=== PATIENT | female | born 1965 | race Caucasian/White ===

== ENCOUNTER 2017-01-14 16:54 | Emergency (ER) | payer OTHER ==
--- NOTE | ~2017-01-14 | CR127 ---
[facility]. [facility] A Service of [facility] & [facility] RADIOLOGY TEXT RESULTS PATIENT: JULIA THACKER LOCATION: SED : 65 UNIT #: [id number] AGE: [address]: LANG HAIRSTON SEX: F ORDER DR: [id number] [place] [address] [id number] E MR#: [id number] Acc #: [id number] NAME: JULIA THACKER : 1965 SEX: F STUDY DATE/TIME: 01/14/2017 16:33 UNIT: SED ROOM: STUDY DESCRIPTION: CR Foot Complete Min 3 View Rt Attending Physician: Lang Hairston Ordering Physician: Pasha Flaherty M.D. Primary Care Physician: Mesfin Pavon M.D. MEDICAL IMAGING REPORT This report is preliminary unless electronic signature is present. EXAM Right foot, 01/14 INDICATIONS Foot pain after fall today. FINDINGS 3 views of the right foot are compared with 09/04/2009. No fracture or malalignment is seen. The soft tissues are unremarkable. IMPRESSION Negative right foot. Dictated by... Francisco Javier Vidal Jr., M.D. THIS IS AN ELECTRONICALLY VERIFIED REPORT Francisco Javier Vidal Jr., M.D. at 01/15/2017 7:54 AM RLK/guzman TD: 01/14/2017 21:24 JOB #: [id number] MEDICAL IMAGING REPORT Page 1 of 1
--- NOTE | ~2017-01-14 | CR21 ---
[facility] A Service of [facility] & [facility] RADIOLOGY TEXT RESULTS PATIENT: JULIA THACKER LOCATION: SED : 65 UNIT #: [id number] AGE: [address]: LANG HAIRSTON SEX: F ORDER DR: [id number] [place] [address] [id number] E MR#: [id number] Acc #: [id number] NAME: JULIA THACKER : 1965 SEX: F STUDY DATE/TIME: 01/14/2017 16:33 UNIT: SED ROOM: STUDY DESCRIPTION: CR Ankle Min 3 Views Rt Attending Physician: Lang Hairston Ordering Physician: Pasha Flaherty M.D. Primary Care Physician: Mesfin Pavon M.D. MEDICAL IMAGING REPORT This report is preliminary unless electronic signature is present. EXAM Right ankle, 01/14 INDICATIONS Ankle pain after fall today. FINDINGS 3 views of the right ankle are compared with 09/04/2009. There is lateral soft tissue swelling. There is an oblique, essentially nondisplaced fracture of the distal fibula. There is also evidence of old trauma about both malleoli. The mortise is intact. IMPRESSION Oblique fracture of the distal fibula with associated lateral soft tissue swelling. Evidence of old trauma about both malleoli. Dictated by... Francisco Javier Vidal Jr., M.D. THIS IS AN ELECTRONICALLY VERIFIED REPORT Francisco Javier Vidal Jr., M.D. at 01/15/2017 7:54 AM RLK/guzman TD: 01/14/2017 21:22 JOB #: [id number] MEDICAL IMAGING REPORT Page 1 of 1
[~2017-01-14 16:54] MED LIST: BETAMETHASONE D50 GM TOP; FLEXERIL10 MG PO; IBUPROFEN PO; NAPROSYN500 MG PO; NO MEDICATIONS; ZESTRIL10 MG PO
== END 2017-01-14 17:55 | disposition home or self-care (01) ==
LOC: SED 16:54
DX: S82.831A Other fracture of upper and lower end of right fibula, initial encounter for closed fracture (principal); I10 Essential (primary) hypertension; X50.1XXA Overexertion from prolonged static or awkward postures, initial encounter; Y92.512 Supermarket, store or market as the place of occurrence of the external cause
CPT/HCPCS: 29515; 73610; 73630; 99283